=== PATIENT | female | born 1955 | race Caucasian/White ===

== ENCOUNTER → 2021-03-07 | Outpatient (CLI) | payer MEDICARE ==
--- NOTE | 2021-03-08 12:13 | REP ---
INDICATION: SCR MAMMO. COMPARISON: 06/13/2019 and 01/14/2017 outside exams TECHNIQUE: Digital screening mammography was obtained bilaterally in both CC and MLO projections using both 2D and 3D modalities and compared to the prior exams. By history, the patient has no complaints of a palpable breast abnormality or other significant breast complaints. FINDINGS: The breasts are unchanged in size and shape. Once again, dense heterogenous fibroglandular elements are seen bilaterally. In the left breast outer aspect near 3 o'clock there is a potential jonathan asymmetric density. No other suspicious features are seen in either breast. Benign calcifications are again seen bilaterally. There is no skin thickening or nipple retraction. The Volpara volumetric breast density pattern is b. IMPRESSION: BIRADS/ACR category 0.. Diagnostic digital magnified spot compression views of the left breast recommended outer aspect near the 3 o'clock position both CC and MLO projections along with ultrasonography if necessary. This patient's Tyrer-Cuzick lifetime breast cancer risk assessment score is 6.4%. This mammogram was interpreted with the aid of an FDA-approved computer-aided detection system. The patient states she had a clinical breast exam in February 2021. The patient letter being requested is M0. RECOMMENDATION: As above <Electronically signed by Saqib Gregory > 03/08/21 [id number]
== END ==
LOC: M WHC 08:18
PROVIDERS: ATTEND Advanced Practice Midwife
DX: Z12.31 Encounter for screening mammogram for malignant neoplasm of breast (principal); N63.25 Unspecified lump in the left breast, overlapping quadrants

== ENCOUNTER → 2021-03-20 | Outpatient (CLI) | payer MEDICARE ==
--- NOTE | 2021-03-20 10:50 | REP ---
INDICATION: ADDL VIEWS/LEFT BREAST/SARAH DENSITY. COMPARISON: The prior screening examination of 03/07/2021 was reviewed. TECHNIQUE: The prior screening examination of 03/07/2021 was reviewed. FINDINGS: Diagnostic digital magnified spot compression views of the left breast over the region of interest seen on the prior screening examination has compressed out to normal breast parenchyma. There are no abnormalities. The Volpara volumetric breast density pattern is b. IMPRESSION: BIRADS/ACR category 2 negative mammogram. There is no evidence of malignant alteration of the left breast. The patient letter being requested is M1. RECOMMENDATION: Repeat screening mammography recommended 1 year (for women over 40). <Electronically signed by Saqib Gregory > 03/20/21 [id number]
== END ==
LOC: M WHC 09:52
PROVIDERS: ATTEND Advanced Practice Midwife
DX: R92.2 Inconclusive mammogram (principal)

== ENCOUNTER → 2022-12-11 | Outpatient (CLI) | payer MEDICARE | LOC: M WHC 14:48 | PROVIDERS: ATTEND Advanced Practice Midwife | DX: Z12.31 Encounter for screening mammogram for malignant neoplasm of breast (principal) ==

== ENCOUNTER → 2024-01-06 | Outpatient (CLI) | payer MEDICARE | LOC: M WHC 08:05 | PROVIDERS: ATTEND Advanced Practice Midwife | DX: Z12.31 Encounter for screening mammogram for malignant neoplasm of breast (principal) ==

== ENCOUNTER → 2024-01-06 | Outpatient (CLI) | payer MEDICARE | LOC: M WHC 09:33 | PROVIDERS: ATTEND Advanced Practice Midwife | DX: M85.88 Other specified disorders of bone density and structure, other site (principal); Z13.820 Encounter for screening for osteoporosis ==

== ENCOUNTER 2024-03-28 11:07 | Day surgery (SDC) | payer MEDICARE ==
[~2024-03-28] VITALS: Ht 160 cm; Wt 92.2 kg
[2024-03-28] MEDS: CEFUROXIME 1MG/0.1ML INTRACAMERAL INJ As Ordered ONE (06:51)
[~2024-03-28 11:07] MED LIST: AZAT50TA37 PO; BREO1INH INH; GABA-282 PO; IMIT100T PO; LANS30CA93 PO; LR 1,000 ML IV SCH; MIDAZOLAM INJ 2MG/2ML VIAL As Ordered ONE; THERTAB52 PO; VITA-176 PO; fentaNYL 100 MCG/2 ML INJECTION As Ordered ONE
[2024-03-28] MEDS: ATROPINE SULFATE 1% OPHTH SOLN 2ML BTL OS SCH (13:51)
[2024-03-28] MEDS: TETRACAINE 0.5% OPHTH SOLN 4ML OS SCH (13:52)
[2024-03-28] MEDS: FLURBIPROFEN 0.03% OPHTH SOLN 2.5 ML OS SCH (13:52)
[2024-03-28] MEDS: PHENYLEPHRINE 2.5% OPHTH SOL 2ML OS SCH (13:52)
[2024-03-28] MEDS: LIDOCAINE 1% SDV 5ML VIAL As Ordered ONE (14:17)
[2024-03-28 14:45] VITALS: TEMP 97.1; O2SAT 96
[2024-03-28 14:50] VITALS: BP 172/90
== END 2024-03-28 15:20 | disposition home or self-care (01) ==
LOC: M SDC 11:07
PROVIDERS: ATTEND Ophthalmology
DX: H25.12 Age-related nuclear cataract, left eye (principal); E11.9 Type 2 diabetes mellitus without complications; G43.909 Migraine, unspecified, not intractable, without status migrainosus; J45.909 Unspecified asthma, uncomplicated; G47.33 Obstructive sleep apnea (adult) (pediatric); Z87.891 Personal history of nicotine dependence; Z79.899 Other long term (current) drug therapy
CPT/HCPCS: 66984; J0697; J2250; J3010; V2632

== ENCOUNTER → 2024-05-02 | Outpatient (CLI) | payer MEDICARE ==
[~2024-05-02] MED LIST changes: -LR 1,000 ML IV SCH; -MIDAZOLAM INJ 2MG/2ML VIAL As Ordered ONE; -fentaNYL 100 MCG/2 ML INJECTION As Ordered ONE
== END ==
LOC: M RAD 13:26
PROVIDERS: ATTEND Physician Assistant
DX: I83.893 Varicose veins of bilateral lower extremities with other complications (principal)